=== PATIENT | female | born 1965 | race Caucasian/White ===

== ENCOUNTER → 2016-05-01 | Outpatient (REF) | payer BC | END | disposition home or self-care (01) | LOC: M LAB REF 11:49 | PROVIDERS: ATTEND Physician Assistant | DX: J02.9 Acute pharyngitis, unspecified (principal) ==

== ENCOUNTER 2018-06-29 10:41 | Day surgery (SDC) | payer BC ==
[~2018-06-29] VITALS: Ht 160 cm; Wt 117.9 kg
[~2018-06-29 10:41] MED LIST: AMLO10TA5 PO; LOSA100T50 PO; NS 1,000 ML IV ONE; OMEP20CA3 PO; PROBCAP4 PO; TRUVISION; VITAMIN B; [UNRECOGNIZED DRUG - OTHER]
[2018-06-29] MEDS ORDERED: PROPOFOL 200 MG/20 ML VIAL As Ordered ONE ×3 (12:17→12:53)
[2018-06-29] MEDS ORDERED: LABETALOL HCL 100 MG/20 ML VIAL As Ordered ONE (12:49)
--- NOTE | 2018-06-29 13:23 | ROOR ---
Patient Name: Marcela Garcia Procedure Date: 06/29/2018 12:36 PM Date of : 1965 Age: 53 Room: [facility] Gender: Female Note Status: Finalized Procedure: Upper GI endoscopy Indications: Follow-up of esophageal reflux Providers: Jacob Arredondo MD Referring MD: PRAMOD WORTHINGTON JR, MD Requesting Provider: Medicines: Monitored Anesthesia Care Complications: No immediate complications. Procedure: Pre-Anesthesia Assessment: - Prior to the procedure, a History and Physical was performed, and patient medications and allergies were reviewed. The patient is competent. The risks and benefits of the procedure and the sedation options and risks were discussed with the patient. All questions were answered and informed consent was obtained. Patient identification and proposed procedure were verified by the physician, the nurse and the imaging tech in the procedure room. Mental Status Examination: alert and oriented. CV Examination: regular rate and rhythm. Prophylactic Antibiotics: The patient does not require prophylactic antibiotics. Prior Anticoagulants: The patient has taken no previous anticoagulant or antiplatelet agents. ASA Grade Assessment: III - A patient with severe systemic disease. After reviewing the risks and benefits, the patient was deemed in satisfactory condition to undergo the procedure. The anesthesia plan was to use monitored anesthesia care (MAC). Immediately prior to administration of medications, the patient was re-assessed for adequacy to receive sedatives. The heart rate, respiratory rate, oxygen saturations, blood pressure, adequacy of pulmonary ventilation, and response to care were monitored throughout the procedure. The physical status of the patient was re-assessed after the procedure. The Endoscope was introduced through the mouth, and advanced to the second part of duodenum. The upper GI endoscopy was accomplished without difficulty. The patient tolerated the procedure well. Findings: The Z-line was irregular. The exam of the esophagus was otherwise normal. A few small sessile polyps were found in the gastric fundus and on the greater curvature of the stomach. The first portion of the duodenum and second portion of the duodenum were normal. Impression: - Z-line irregular. - A few gastric polyps. - Normal first portion of the duodenum and second portion of the duodenum. - No specimens collected. Recommendation: - Discharge patient to home. - Resume previous diet. - Continue present medications. Jacob Arredondo MD Jacob Arredondo MD 06/29/2018 1:23:01 PM Electronically signed by Jacob Arredondo MD Number of Addenda: 0 Note Initiated On: 06/29/2018 12:36 PM Estimated Blood Loss: Estimated blood loss: none.
--- NOTE | 2018-06-29 13:26 | ROOR ---
Patient Name: Marcela Garcia Procedure Date: 06/29/2018 12:36 PM Date of : 1965 Age: 53 Room: [facility] Gender: Female Note Status: Finalized Procedure: Colonoscopy Indications: Screening for colorectal malignant neoplasm, This is the patient's first colonoscopy Providers: Jacob Arredondo MD Referring MD: PRAMOD WORTHINGTON JR, MD Requesting Provider: Medicines: Monitored Anesthesia Care Complications: No immediate complications. Procedure: Pre-Anesthesia Assessment: - Prior to the procedure, a History and Physical was performed, and patient medications and allergies were reviewed. The patient is competent. The risks and benefits of the procedure and the sedation options and risks were discussed with the patient. All questions were answered and informed consent was obtained. Patient identification and proposed procedure were verified by the physician, the nurse and the adult protective caseworker in the procedure room. Mental Status Examination: alert and oriented. CV Examination: regular rate and rhythm. Prophylactic Antibiotics: The patient does not require prophylactic antibiotics. Prior Anticoagulants: The patient has taken no previous anticoagulant or antiplatelet agents. ASA Grade Assessment: III - A patient with severe systemic disease. After reviewing the risks and benefits, the patient was deemed in satisfactory condition to undergo the procedure. The anesthesia plan was to use monitored anesthesia care (MAC). Immediately prior to administration of medications, the patient was re-assessed for adequacy to receive sedatives. The heart rate, respiratory rate, oxygen saturations, blood pressure, adequacy of pulmonary ventilation, and response to care were monitored throughout the procedure. The physical status of the patient was re-assessed after the procedure. The Colonoscope was introduced through the anus and advanced to the cecum, identified by appendiceal orifice and ileocecal valve. The colonoscopy was performed without difficulty. The patient tolerated the procedure well. The quality of the bowel preparation was excellent. Findings: The perianal and digital rectal examinations were normal. The colon (entire examined portion) appeared normal. Impression: - The entire examined colon is normal. - No specimens collected. Recommendation: - Discharge patient to home. - Resume previous diet. - Continue present medications. Jacob Arredondo MD Jacob Arredondo MD 06/29/2018 1:25:36 PM Electronically signed by Jacob Arredondo MD Number of Addenda: 0 Note Initiated On: 06/29/2018 12:36 PM Estimated Blood Loss: Estimated blood loss: none.
[2018-06-29 13:51] VITALS: BP 162/99
== END 2018-06-29 13:54 | disposition home or self-care (01) ==
LOC: M OPP 10:41
PROVIDERS: ATTEND Surgery
DX: K21.9 Gastro-esophageal reflux disease without esophagitis (principal); K22.8 Other specified diseases of esophagus; K31.7 Polyp of stomach and duodenum; Z12.11 Encounter for screening for malignant neoplasm of colon

== ENCOUNTER → 2021-03-26 | Outpatient (REF) | payer BC ==
[~2021-03-26] MED LIST changes: -AMLO10TA5 PO; +AMLO1TAB25 PO; -NS 1,000 ML IV ONE; +OMEP1CAP73 PO; -OMEP20CA3 PO
== END ==
LOC: M LAB REF 16:26
PROVIDERS: ATTEND Nurse Practitioner Adult Health
DX: Z79.899 Other long term (current) drug therapy (principal)

== ENCOUNTER → 2024-12-07 | Outpatient (REF) | payer BC ==
[~2024-12-07] MED LIST changes: +LOSA100T46 PO; -LOSA100T50 PO
[2024-12-07 15:50] LABS: C REACTIVE PROTEIN QUANTITATIV < 0.50 MG/DL (<1.0)
== END ==
LOC: M LAB REF 14:15
PROVIDERS: ATTEND Nurse Practitioner Adult Health
DX: M25.511 Pain in right shoulder (principal); M15.9 Polyosteoarthritis, unspecified

== ENCOUNTER → 2024-12-07 | Outpatient (CLI) | payer BC | LOC: M WUC 12:16 | DX: M79.671 Pain in right foot (principal); M19.071 Primary osteoarthritis, right ankle and foot; M25.511 Pain in right shoulder; M15.9 Polyosteoarthritis, unspecified ==